=== PATIENT | female | born 1995 | race Caucasian/White ===

== ENCOUNTER 2023-01-19 02:38 | Emergency (ER) | payer BC ==
[2023-01-19] MEDS ORDERED: Ibuprofen 800 MG Tab PO ONE (02:39)
== END 2023-01-19 03:24 | disposition home or self-care (01) ==
LOC: FB.ED 02:38
DX: S52.122A Displaced fracture of head of left radius, initial encounter for closed fracture (principal); Z88.0 Allergy status to penicillin; W18.30XA Fall on same level, unspecified, initial encounter
CPT/HCPCS: 73080; 99283; A9270; 99282